=== PATIENT | female | born 1975 | race Two or more races ===

== ENCOUNTER 2016-11-29 16:16 | Emergency (ER) | payer OTHER ==
[~2016-11-29] VITALS: Wt 90.0 kg
[2016-11-29] MEDS ORDERED: HYDROCODONE/APAP (10/325) TAB PO ONE (18:30)
--- NOTE | 2016-11-29 18:53 | ERD ---
ER Documentation Chief Complaint Date/Time DATE: 11/29/16 TIME: 18:51 Chief Complaint low back pain for the past few hrs. no nausea or vomiting. no dysuria (ELISABEHT ROSE PA-C) HPI Patient is a 41-year-old female who presents complaining of low back pain and chest pain that began about 2 PM this afternoon. States the pain is 10 out of 10. She denies any dysuria, hematuria or increased urinary frequency. She denies any cardiac past medical history. She denies cough or fever. Denies any dizziness or shortness of breath. Has not taken anything for pain. Denies any trauma. (ELISABETH ROSE PA-C) ROS All systems reviewed and are negative except as per history of present illness. (ELISABETH ROSE PA-C) Medications Home Meds Active Scripts Hydrocodone/Acetaminophen (Secretary 10-325 Tablet) 1 Each Tablet, 1 EACH PO Q6, # 20 TAB Prov:ELISABETH ROSE PA-C 11/29/16 Naproxen* (Naprosyn*) 500 Mg Tablet, 500 MG PO BID Y for PAIN AND/OR INFLAMMATION, #30 TAB Prov:ELISABETH ROSE PA-C 11/29/16 Allergies Allergies: Coded Allergies: No Known Allergy (Unverified , 11/29/16) PMhx/Soc Medical and Surgical Hx: pt denies Medical Hx, pt denies Surgical Hx Hx Alcohol Use: No Hx Substance Use: No Hx Tobacco Use: No Smoking Status: Never smoker (ELISABETH ROSE PA-C) FmHx Family History: No diabetes (ELISABETH ROSE PA-C) Physical Exam Vitals Vital Signs Date Time Temp Pulse Resp B/P Pulse Ox O2 Delivery O2 Flow Rate FiO2 11/29/16 16:28 99.4 65 20 150/75 98 (MAYO TAVAREZ PA-C) Physical Exam Const: [] Head: Atraumatic General: well developed, well nourished, alert, nontoxic, no distress Head: normocephalic, atraumatic Eyes: PERRL, normal conjunctiva Neck: Supple, nontender, no lymphadenopathy, no midline tenderness Respiratory: Clear to auscaultation bilaterally, speaks in full sentences, no use of accesory muscles or labored breathing, no rales, ronchi, or wheezing Cardiovascular: RRR, No murmurs GI: soft, non tender, non distended, negative murphys sign, negative mcburneys point tenderness, no cva tenderness bilaterally, no rebound or guarding Back: no midline tenderness, no step offs or bony abnormalities, sensation to light touch in tact Extremities: moving all extremities normally, normal gait, no edema (ELISABETH ROSE PA-C) Result Diagram: 11/29/16 1950 11/29/16 1950 Results 24 hrs Laboratory Tests Test 11/29/16 19:06 11/29/16 19:50 Urine Bilirubin NEGATIVE Urine Clarity CLEAR Urine Color LT. YELLOW Urine Glucose NEGATIVE% Urine Hemoglobin NEGATIVE Urine Ketones TRACE Urine Leukocyte Esterase NEGATIVE Urine Nitrite NEGATIVE Urine Specific [place] <=1.005 Urine Total Protein NEGATIVE Urine Urobilinogen 0.2 E.U./dL Urine pH 7.0 Activated Partial Thromboplast Time 25.8Sec Anion Gap 19 Basophils # 0.110^3/ul Basophils % 0.5% Blood Urea Nitrogen 13mg/dl Calcium Level 9.6mg/dl Carbon Dioxide Level 25mmol/L Chloride Level 102mmol/L Creatinine 0.62mg/dl Eosinophils # 0.010^3/ul Eosinophils % 0.1% Glucose Level 112mg/dl Hematocrit 42.0% Hemoglobin 14.1g/dl INR International Normalized Ratio 0.96 Lymphocytes # 3.710^3/ul Lymphocytes % 26.6% Mean Corpuscular Hemoglobin 29.8pg Mean Corpuscular Hemoglobin Concent 33.6g/dl Mean Corpuscular Volume 88.7fl Mean Platelet Volume 9.1fl Monocytes # 0.510^3/ul Monocytes % 3.3% Neutrophils # 9.710^3/ul Neutrophils % 69.5% Nucleated Red Blood Cells # 0.010^3/ul Nucleated Red Blood Cells % 0.0/100WBC Platelet Count 68801^3/UL Potassium Level 3.9mmol/L Prothrombin Time 12.8Sec Prothrombin Time Ratio 1.0 Red Blood Count 4.7310^6/ul Red Cell Distribution Width 13.6% Sodium Level 142mmol/L Troponin I < 0.012ng/ml White Blood Count 14.010^3/ul Current Medications Medications (Trade) Dose Ordered Sig/Kay Route PRN Reason Start Time Stop Time Status Last Admin Dose Admin Acetaminophen/ Hydrocodone Bitart (Secretary (10325)) 1 tab ONCE ONCE PO 11/29/16 18:30 11/29/16 18:31 DC 11/29/16 18:14 (MAYO TAVAREZ PA-C) Procedures/MDM 41-year-old female presents with back and chest pain that began today. Patient' s blood pressure was elevated (>120/80) but appears stable without evidence of hypertension emergency or urgency. The patient was counseled about the risks of hypertension and urged to pursue outpatient monitoring and therapy within a week with their primary care physician. EKG was performed and it was normal with a rate of 79 with no evidence of ST elevation or acute ischemic changes. Labs were drawn and x-rays of the chest and lumbar spine were ordered. Patient was given Secretary for pain control. Results are still pending at the end of my shift and this patient was endorsed to the next provider who will dictate an addendum regarding the results of the pending labs and x-rays. (ELISABETH ROSE PA-C) Patient was handed to me from Yves AGUILAR. Patient was reexamined. ER COURSE: I kept the patient and/or family informed of laboratory and diagnostic imaging results throughout the emergency room course. EKG, MONITORS, & DIAGNOSTIC IMAGING: [place] [id number] Radiology Main Line: [phone] DIAGNOSTIC IMAGING REPORT Patient: EMILY FENTON : 1975 Age: 41 Sex: F MR #: [id number] DOS: 11/29/16 1805 Ordering MD: ELISABETH ROSE PA-C Location: [facility] Room/Bed: PROCEDURE: XR Chest. CLINICAL INDICATION: Chest pain. TECHNIQUE: Single frontal view of the chest was obtained COMPARISON: No. FINDINGS: The soft tissues are normal. The bony elements are normal. The heart, left side aorta, cardiomediastinal silhouette, pulmonary vasculature and hilar structures are normal. The lungs are clear. The costophrenic angles are normal. IMPRESSION: 1. Normal chest x-ray. RPTAT:AAJJ Physician Renetta Date Time Electronically viewed and signed by Physician Renetta on 11/29/2016 20:38 JM/ CC: ELISABETH ROSE PA-C [place] [id number] Radiology Main Line: [phone] DIAGNOSTIC IMAGING REPORT Patient: EMILY FENTON : 1975 Age: 41 Sex: F MR #: [id number] DOS: 11/29/16 0000 Ordering MD: ELISABETH ROSE PA-C Location: [facility] Room/Bed: PROCEDURE: XR Lumbar Spine. CLINICAL INDICATION: Back pain. TECHNIQUE: AP, lateral and cone-down lateral view of the lumbar spine were obtained. COMPARISON: No. FINDINGS: There is a dextrocurvature at L2-3. There are ventral osteophytes at L1-2, L2-3 , L3-4 and at L4-5. There is disk space narrowing at L5-S1. The neural canal and nerve root foramina are normal. There is straightening of the lumbar curvature. IMPRESSION: 1. 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 RPTAT:AAJJ Physician Renetta Date Time Electronically viewed and signed by Physician Renetta on 11/29/2016 20:39 JM/ CC: ELISABETH ROSE PA-C MEDICATIONS: Patient was given 30 mg IM of Toradol. Patient tolerated occasional with no adverse reaction. LAB INTERPRETATION: CBC showed no evidence of severe anemia with a white count of 14 with no neutrophil shift. CMP showed no evidence of electrolyte abnormalities, severe acidosis, alkalosis, renal failure, or liver disease. Lipase showed no evidence of acute pancreatitis. UA showed no evidence of leukocytes, nitrites or hematuria. Urine test was negative. MEDICAL DECISION MAKING: This is a 41-year-old female who presents with back pain. Vital signs were reviewed. Patient is afebrile. Patient is not hypoxic. Patient likely has back pain of uncertain etiology. Her x-ray is read by radiologist is unremarkable and shows osteoarthritis of the lumbar spine. Low suspicion for cauda equine syndrome, spinal epidural hematoma, spinal epidural abscess, osteomyelitis, fracture, aortic dissection, AAA, pyelonephritis, nephrolithiasis, septic stone , obstructed stone. Chest x-ray is within normal limits and her labs are within normal limits her white count of 14 is likely related to pain and stress reaction. Low suspicion for ACS, PE, AAA, dissection, DVT DISCHARGE: At this time, patient is stable for discharge and outpatient management with no new complaints during the ER course. Patient was sent home with [place] and [place] as written by Yves Rose. Patient will be discharged home with instructions to recheck for new or worsening symptoms such as fever, nausea, weakness, LOC and to follow up with primary care in the next 1-2 days. Patient was advised to return to the ER for any new or worsening symptoms. Plan was discussed and patient and/or family understands and agrees. Home instructions were given. (MAYO TAVAREZ PA-C) Departure Diagnosis: Primary Impression: Back pain Additional Impression: Chest pain Condition: Stable ELISABETH ROSE PA-C Nov 29, 2016 18:53 MAYO TAVAREZ PA-C Nov 29, 2016 21:06
[2016-11-29] MEDS ORDERED: HYDR-902 PO (19:01)
[2016-11-29] MEDS ORDERED: NAPR-260 PO (19:01)
[2016-11-29 20:03] LABS: ADD UMIC NO; URINE BILIRUBIN (Dip) NEGATIVE (NEGATIVE); URINE BLOOD (Dip) NEGATIVE (NEGATIVE); URINE COLOR LT. YELLOW (YELLOW); URINE GLUCOSE (Dip) NEGATIVE (NEGATIVE); URINE KETONES (Dip) TRACE (NEGATIVE); URINE LEUKOCYTE ESTERASE (Dip) NEGATIVE (NEGATIVE); URINE NITRITE (Dip) NEGATIVE (NEGATIVE); URINE TOTAL PROTEIN (Dip) NEGATIVE (NEGATIVE); URINE UROBILINOGEN (Dip) 0.2 E.U./dL (0.1-1.0)
[2016-11-29 20:19] LABS: BASOPHIL # 0.1 10^3/ul (0.0-0.1); BASOPHILS % 0.5 % (0.0-2.0); EOSINOPHILS % 0.1 % (0.0-7.0); HEMOGLOBIN 14.1 g/dl (12.0-16.0); LYMPHOCYTES # 3.7 10^3/ul (0.8-2.9); LYMPHOCYTES % 26.6 % (15.0-51.0); MEAN CORPUSCULAR HEMOGLOBIN 29.8 pg (29.0-33.0); MEAN CORPUSCULAR HGB CONC 33.6 g/dl (32.0-37.0); MEAN CORPUSCULAR VOLUME 88.7 fl (82.0-101.0); MEAN PLATELET VOLUME 9.1 fl (7.4-10.4); MONOCYTE # 0.5 10^3/ul (0.3-0.9); MONOCYTES % 3.3 % (0.0-11.0); NEUTROPHIL # 9.7 10^3/ul (1.6-7.5); NEUTROPHILS % 69.5 % (39.0-77.0); PLATELET COUNT 287 10^3/UL (140-440); RED BLOOD COUNT 4.73 10^6/ul (4.20-5.40); RED CELL DISTRIBUTION WIDTH 13.6 % (11.5-14.5)
[2016-11-29 20:20] LABS: CONDITION 1
[2016-11-29 20:30] LABS: INR 0.96; PROTIME 12.8 Sec (12.2-14.2)
[2016-11-29 20:31] LABS: PARTIAL THROMBOPLASTIN TIME 25.8 Sec (25.0-35.0)
[2016-11-29 20:34] LABS: CHLORIDE 102 mmol/L (97-110); POTASSIUM 3.9 mmol/L (3.5-5.1); SODIUM 142 mmol/L (135-144)
[2016-11-29 20:37] LABS: ANION GAP 19 (8-16); CARBON DIOXIDE 25 mmol/L (21-31); CREATININE 0.62 mg/dl (0.44-1.00)
[2016-11-29 20:38] LABS: BLOOD UREA NITROGEN 13 mg/dl (7-20); CALCIUM 9.6 mg/dl (8.4-10.2); GLUCOSE 112 mg/dl (70-220)
--- NOTE | 2016-11-29 20:38 | RADRPT ---
PROCEDURE: XR Chest. CLINICAL INDICATION: Chest pain. TECHNIQUE: Single frontal view of the chest was obtained COMPARISON: No. FINDINGS: The soft tissues are normal. The bony elements are normal. The heart, left side aorta, cardiomedias tinal silhouette, pulmonary vasculature and hilar structures are normal. The lungs are clear. The co stophrenic angles are normal. IMPRESSION: 1. Normal chest x-ray. RPTAT:AAJJ Physician Renetta Date Time Electronically viewed and signed by Ricco De Dios Physician on 11/29/2016 20:38 JM/
--- NOTE | 2016-11-29 20:40 | RADRPT ---
PROCEDURE: XR Lumbar Spine. CLINICAL INDICATION: Back pain. TECHNIQUE: AP, lateral and cone-down lateral view of the lumbar spine were obtained. COMPARISON: No. FINDINGS: There is a dextrocurvature at L2-3. There are ventral osteophytes at L1-2, L2-3, L3-4 and at L4-5. There is disk space narrowing at L5-S1. The neural canal and nerve root foramina are normal. Ther e is straightening of the lumbar curvature. IMPRESSION: 1. 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 RPTAT:AAJJ Physician Renetta Date Time Electronically viewed and signed by Ricco De Dios Physician on 11/29/2016 20:39 SAÚL/
[2016-11-29 20:49] LABS: TROPONIN-I < 0.012 ng/ml (0.00-0.12)
[2016-11-29] MEDS ORDERED: KETOROLAC 30 MG INJ IM STA (21:00)
[2016-11-29 22:01] VITALS: BP 112/56; PULSE 69; RESP 18; TEMP 98.2
== END 2016-11-29 22:02 | disposition home or self-care (01) ==
LOC: FTE 16:16
DX: M54.5 Low back pain (principal); R07.9 Chest pain, unspecified
CPT/HCPCS: 71010; 72100; 80048; 81003; 84484; 85025; 85610; 85730; 96372; J1885; Z7502; Z7610; 93005